=== PATIENT | male | born 1990 | race Caucasian/White ===

== ENCOUNTER 2019-08-16 21:38 | Emergency (ER) | payer SELFPAY ==
--- NOTE | ~2019-08-16 | XR_ITS ---
EXAMINATION: XR shoulder RT min 2V DATE: 08/16/2019 22:25 INDICATION: Right shoulder dislocation. TECHNIQUE: 2 views of right shoulder were obtained. COMPARISON: None. FINDINGS: There is anterior dislocation of humeral head with respect to glenoid. No fracture. Acromio clavicular joint is normal. IMPRESSION: 1. Anterior right shoulder dislocation. Reviewed, dictated and finalized at location A.
--- NOTE | ~2019-08-16 | XR_ITS ---
EXAMINATION: XR shoulder RT min 2V DATE: 08/16/2019 22:49 INDICATION: Anterior right shoulder dislocation status post reduction. TECHNIQUE: 2 views of right shoulder were obtained. COMPARISON: Right shoulder radiographs at 10:16 PM FINDINGS: Bone alignment is normal. No fracture. Joint spaces are normal. IMPRESSION: 1. Normal alignment at right glenohumeral joint. Reviewed, dictated and finalized at location A.
--- NOTE | ~2019-08-16 | XR_ITS ---
EXAMINATION: XR scapula RT DATE: 08/16/2019 22:31 INDICATION: Right shoulder dislocation. TECHNIQUE: 3 views of right scapula were obtained. COMPARISON: None. FINDINGS: There is anterior dislocation of humeral head with respect to glenoid. No fracture. Acromio clavicular joint is normal. IMPRESSION: 1. Anterior right shoulder dislocation. Reviewed, dictated and finalized at location A.
[2019-08-16 21:40] VITALS: BP 156/75; PULSE 78; RESP 20; TEMP 37; O2SAT 98
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
[2019-08-16] MEDS: ONDANSETRON INJ 4 MG/2 ML VIAL IV PUSH (22:01)
[2019-08-16 22:05] VITALS: BP 124/74; PULSE 70; RESP 16; O2SAT 100
--- NOTE | 2019-08-16 22:44 | PC.NURSE ---
Report to Jeniffer
[2019-08-16 23:00] VITALS: BP 135/80; PULSE 67; RESP 18; O2SAT 100
--- NOTE | 2019-08-16 23:00 | PC.NURSE ---
oriented to new day care worker, immobilizer placed
[2019-08-16 23:30] VITALS: BP 127/80; PULSE 70; RESP 18; TEMP 36.6; O2SAT 100
== END 2019-08-16 23:31 | disposition home or self-care (01) ==
PROVIDERS: Emergency Provider Emergency Medicine
DX: S43.004A Unspecified dislocation of right shoulder joint, initial encounter (principal); V29.9XXA Motorcycle rider (driver) (passenger) injured in unspecified traffic accident, initial encounter
CPT/HCPCS: 23650; 73010; 73030; 96374; 96375; 99283; 99285; A9270; J2405; J3010; L3670

== ENCOUNTER 2019-09-08 10:08 | Emergency (ER) | payer SELFPAY ==
[2019-09-08] VITALS (7 sets, daily range): BP systolic 113–143; BP diastolic 65–79; PULSE 52–78; RESP 14–16; TEMP 36.6; O2SAT 97–100
--- NOTE | ~2019-09-08 | XR_ITS ---
EXAMINATION: XR shoulder RT min 2V DATE: 09/08/2019 10:49 INDICATION: Right shoulder dislocation TECHNIQUE: AP, AP oblique and transscapular Y views of the right shoulder were obtained. COMPARISON: 08/16/2019 FINDINGS: Anterior dislocation of the right glenohumeral joint. Normal alignment and joint space at the right a cromioclavicular joint. No fractures identified. Visualized portions of the right lung are clear. IMPRESSION: Anterior right glenohumeral dislocation. Reviewed, dictated and finalized at location A.
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
[2019-09-08] MEDS: MIDAZOLAM HCL 2 MG/2 ML VIAL IV PUSH (11:25)
--- NOTE | 2019-09-08 13:56 | PC.NURSE ---
SEE PAPER CHART FOR MODERATE SEDATION DOCUMENTATION.
== END 2019-09-08 13:57 | disposition home or self-care (01) ==
PROVIDERS: Emergency Provider Family Medicine
DX: S43.014A Anterior dislocation of right humerus, initial encounter (principal)
CPT/HCPCS: 23650; 73030; 99283; 99285; J2250; J3010

== ENCOUNTER 2021-01-11 21:58 | Emergency (ER) | payer SELFPAY ==
--- NOTE | ~2021-01-11 | XR_ITS ---
EXAMINATION: XR shoulder RT min 2V EXAM DATE: 01/11/2021 22:40 INDICATION: dislocation. best available images due to patient condition. TECHNIQUE: Frontal, axillary projections right shoulder. Comparison is made to prior examination fro 09/08/2019. FINDINGS: There is right humeral anterior inferior shoulder dislocation. There may be a chronic Hill -Sachs deformity. No acute fracture suspected. Arm is extended on these projections. IMPRESSION: Right humeral anterior inferior shoulder dislocation, possible chronic Hill-Sachs deform ity. Reviewed, dictated and finalized at location A. [employer] IMPRESSION: Right humeral anterior inferior shoulder dislocation, possible chr onic Hill-Sachs deformity.
--- NOTE | ~2021-01-11 | XR_ITS ---
EXAMINATION: XR shoulder RT min 2V EXAM DATE: 01/11/2021 23:22 INDICATION: Postreduction. TECHNIQUE: Frontal, glenoid, Y projections right shoulder. There is no prior study for comparison. FINDINGS: The right humeral head has been reduced, is in expected position. No acute fractures ident ified. Humerus is no longer extended. IMPRESSION: Status post right humeral reduction. Reviewed, dictated and finalized at location G. R QUALITY TECHNICIAN
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
[2021-01-11 22:08] VITALS: BP 132/65; PULSE 82; RESP 18; TEMP 37.2; O2SAT 96
[2021-01-11] MEDS: KETOROLAC 30 MG/ML VIAL (*BKC) IV PUSH (23:05)
[2021-01-11] MEDS: MIDAZOLAM HCL (*CRX) 2 MG/2 ML VIAL IV PUSH (23:05)
--- NOTE | 2021-01-11 23:55 | PC.NURSE ---
pt return to normal baseline pre sedation, mother at bedside to drive pt home. tolerated procedure well. no nausea, no vomiting . SEE ER SEDATION RECORD HARD COPY
[2021-01-12 00:03] VITALS: BP 116/65; PULSE 66; RESP 20; TEMP 36.6; O2SAT 98
== END 2021-01-12 00:10 | disposition home or self-care (01) ==
PROVIDERS: Emergency Provider Emergency Medicine
DX: S43.084A Other dislocation of right shoulder joint, initial encounter (principal)
CPT/HCPCS: 23650; 73030; 96374; 96375; 99283; 99285; J1885; J2250; L3670

== ENCOUNTER 2021-10-02 07:54 | Emergency (ER) | payer SELFPAY ==
--- NOTE | ~2021-10-02 | XR_ITS ---
XR shoulder RT min 2V DATE: 10/02/2021 08:42 INDICATION: Post reduction of dislocation TECHNIQUE: AP and Neer views COMPARISON: None FINDINGS: Alignment is intact at the acromioclavicular and glenohumeral joints. Mild superior subluxa tion at the glenohumeral joint may indicate rotator cuff pathology. Probable Hill-Sachs deformity of the humerus. No acute fracture is evident. IMPRESSION: No acute fracture or dislocation is detected Reviewed, dictated and finalized at location A.
[2021-10-02 08:00] VITALS: BP 116/68; PULSE 79; RESP 20; TEMP 36.8; O2SAT 97
--- NOTE | 2021-10-02 08:13 | ED.UPPEXIN ---
HPI - Extremity Injury (Upper) General Chief Complaint: Extremity Injury, Upper Stated Complaint: dislocated shoulder right side Time Seen by Provider: 10/02/21 08:10 Source: patient and RN notes reviewed Mode of arrival: ambulatory Limitations: no limitations History of Present Illness complaint: injury to: right and shoulder Onset (ago): minute(s) (30) Other injuries: none Handedness: right Place: home Severity: severe Relieving factors: immobilization Exacerbating factors: movement of extremity Context: other (Reached under the bed for his phone) Associated symptoms: denies other symptoms Related Data Home Medications Medication Instructions Recorded Confirmed No Home Medications 10/02/21 10/02/21 Allergies Allergy/AdvReac Type Severity Reaction Status Date / Time ibuprofen Allergy Unknown Verified 08/16/19 22:03 Review of Systems Review of Systems: All systems reviewed & are unremarkable except as noted in HPI and below PMFSH Past Medical History Medical History Recurrent dislocation, right shoulder Social History Social History Smoking status: Former smoker Alcohol intake: current Substance use: current Substance use type: marijuana Exam Const: General: healthy appearing, alert and ill appearing acutely Nutritional Appearance: well nourished and thin Orientation/consciousness: patient oriented x3 Limitations: no limitations HENMT: Head: normal to inspection Ears: external ears normal Eyes: Conjunctivae: conjunctivae normal Pupils: Equal, round and reactive pupils present EOM: EOMs intact bilaterally Neck: Neck: normal visual inspection Resp: Effort & Inspection: normal respiratory effort Auscultation: clear to auscultation bilaterally Cardio: Rate: regular rate Rhythm: regular rhythm GI: GI Palp: Yes Soft to palpation and No Tenderness to palpation present (GI) Auscultation: normal bowel sounds Back/Spine/Pelvis: Cervical Spine: cervical ROM normal Thoracic/Lumbar Spine: thoraco-lumbar ROM normal Skin: General skin exam: normal color Rashes: no rashes Neuro: General: patient oriented x3, moves all extremities, no focal motor deficits and CN's II-XI intact bilaterally Speech: normal speech Gait exam (Neuro): Normal gait present Extrem: General: normal exam except as noted Right upper extremity: shoulder/upper arm abnormal to inspection obvious dislocation, tenderness of the proximal humerus and abnormal ROM held in an abnormal fashion in ADduction, in flexion and in internal rotation Psych: Mental Status: mental status grossly normal Affect: normal affect Attitude: cooperative Course Vital Signs Vital signs: Vital Signs Temperature 36.8 C 10/02/21 08:00 Pulse Rate 79 10/02/21 08:00 Respiratory Rate 20 10/02/21 08:00 Blood Pressure 116/68 10/02/21 08:00 Pulse Oximetry 97 10/02/21 08:00 Oxygen Delivery Room Air 10/02/21 08:00 Temperature 36.6 C 10/02/21 09:26 Pulse Rate 74 10/02/21 09:26 Respiratory Rate 18 10/02/21 09:26 Blood Pressure 116/84 10/02/21 09:26 Pulse Oximetry 97 10/02/21 09:26 Oxygen Delivery Room Air 10/02/21 09:26 Procedures Orthopedic Joint Reduction Joint #1: Orthopedic Joint Reduction Date: 10/02/21 Time Out Performed: Yes Side: right Joint Reduction Location: shoulder Analgesia: procedural sedation Pre-Procedure Neuro Vascular Exam: normal Technique used: direct manipulation Post-reduction neuro exam: intact Post-reduction vascular: intact Post Reduction X-Ray Obtained: Yes Post Reduction X-Ray Results: reduced Splint Applied: Yes Patient Tolerated Procedure: well and no complications Discharge Plan Discharge Clinical Impression: Dislocation of shoulder region Qualifiers: Encounter type: initial en
[2021-10-02] MEDS: HYDROmorphone HCL INJ (*CRX) 2 MG/ML VIAL 1 MG IV PUSH (08:21)
[2021-10-02] MEDS: ETOMIDATE 20 MG/10 ML AMPUL 10 MG IV PUSH (08:25)
--- NOTE | 2021-10-02 08:58 | PC.NURSE ---
SEE CONSCIOUS SEDATION FLOWSHEETS (HARD COPY). CONSENT VERBALLY AGREED PER PT. PT UNABLE TO SIGN CONSENT FORM.
--- NOTE | 2021-10-02 09:18 | PC.NURSE ---
PT ABLE TO RESPOND APPROPRIATELY, NO DIFFICULTIES WITH AMBULATION IN THE [address]. ABLE TO SIT , STAND. DENIES DIZZINESS, NO NAUSEA, NO VOMITING. ALL DISCHARGE PAPERS REVIEWED WITH PT AND CALL PLACED TO MARILYNN FOR GYNECOLOGY TEACHER OF PT. WILL DISCUSS DISCHARGE ALSO WITH MARILYNN. SEDATION DISCHARGE PLAN REVIEWED WITH PATIENT FROM CONSCIOUS SEDATION PACKET AND SENT HOME WITH PT.
[2021-10-02 09:26] VITALS: BP 116/84; PULSE 74; RESP 18; TEMP 36.6; O2SAT 97
== END 2021-10-02 09:40 | disposition home or self-care (01) ==
PROVIDERS: Emergency Provider Emergency Medicine
DX: S43.004A Unspecified dislocation of right shoulder joint, initial encounter (principal)
CPT/HCPCS: 23650; 73030; 96374; 96375; 99285; A4565; J1170

== ENCOUNTER 2022-08-22 06:45 | Emergency (ER) | payer SELFPAY ==
--- NOTE | ~2022-08-22 | XR_ITS ---
Right Shoulder Technique: AP and scapular Y views were obtained. Clinical History: Post reduction COMPARISON: 08/22/2022 at 7:08 AM Findings: No fracture or dislocation is seen. Osseous alignment is anatomic. The glenohumeral and acr omioclavicular joint spaces are preserved. Soft tissues are unremarkable. Impression: Successful reduction of previously noted humeral head dislocation. No fracture or dislocation seen currently. Reviewed, dictated and finalized at location . Impression: Successful reduction of previously noted humeral head dislocation. No fracture or dislocation seen currently.
--- NOTE | ~2022-08-22 | XR_ITS ---
Right Shoulder Technique: AP and scapular Y views were obtained. Clinical History: Dislocation Findings: Anteroinferior dislocation of the humeral head is present. No fracture identified. AC joint is intact Soft tissues are unremarkable. Impression: Anteroinferior dislocation of the right humeral head. No fracture identified. Reviewed, dictated and finalized at location . Impression: Anteroinferior dislocation of the right humeral head. No fracture identified.
[2022-08-22 06:51] VITALS: BP 140/84; PULSE 66; RESP 16; TEMP 37.2; O2SAT 99
--- NOTE | 2022-08-22 07:01 | ED.UPPEXIN ---
HPI - Extremity Injury (Upper) General Chief Complaint: Extremity Injury, Upper Stated Complaint: R Shoulder Injury Time Seen by Provider: 08/22/22 07:00 Source: patient Mode of arrival: ambulatory Limitations: no limitations History of Present Illness HPI narrative: 31-year-old male with a history of recurrent anterior shoulder dislocation presents to the ER with -- acute onset right shoulder pain when he woke up this morning with decreased range of motion. complaint: injury to: right Onset (ago): hour(s) ( 1 hour ago) Other injuries: none Handedness: right Place: home Relieving factors: immobilization Exacerbating factors: movement of extremity Context: other ( spontaneous dislocation) Associated symptoms: denies other symptoms Related Data Allergies Allergy/AdvReac Type Severity Reaction Status Date / Time No Known Allergies Allergy Verified 08/22/22 07:20 Review of Systems Review of Systems: All systems reviewed & are unremarkable except as noted in HPI and below Constitutional: Constitutional: Reports as per HPI and Reports no additional constitutional complaints Eyes: Eyes: Reports as per HPI and Reports no additional eye complaints ENT: Reports system reviewed and no additional complaints, except as documented and Reports as per HPI Cardiovascular: Cardiovascular: Reports as per HPI and Reports no additional cardiovascular complaints Respiratory: Respiratory: Reports as per HPI and Reports no additional respiratory complaints Gastrointestinal: Gastrointestinal: Reports as per HPI and Reports no additional gastrointestinal complaints Genitourinary: Genitourinary: Reports no additional male genitourinary complaints and Reports as per HPI Musculoskeletal: Musculoskeletal: Reports no additional musculoskeletal complaints and Reports as per HPI Comments: right shoulder pain with decreased range of motion Integumentary/Breasts: Skin/Breast: Reports system reviewed and no additional complaints, except as docu Neurologic: Reports system reviewed and no additional complaints, except as documented and Reports as per HPI Psychiatric: Psychiatric: Reports no additional psychiatric complaints and Reports as per HPI Endocrine: Endocrine: Reports no additional endocrine complaints and Reports as per HPI Hematologic/Lymphatic: Hematologic/Lymphatic: Reports no additional hematologic/lymphatic complaints and Reports as per HPI Allergic/Immunologic: Allergic/Immunologic: Reports no additional allergic/immunologic complaints and Reports as per HPI [facility] Past Medical History Medical History (Updated 08/22/22 @ 08:04 by Fidel Coleman MD) Recurrent dislocation, right shoulder Recurrent shoulder dislocation Social History Social History Smoking status: Former smoker Alcohol intake: current Substance use: current Substance use type: marijuana Living arrangements: with family Exam Const: General: healthy appearing Nutritional Appearance: thin Orientation/consciousness: patient oriented x3 HENMT: Head: normal to inspection Ears: external ears normal Face/Nose/Sinus: Normal external nose present Face and sinus: normal facial exam Mouth: Yes Normal oral and palatal mucosa present Throat: posterior oropharynx normal Eyes: Conjunctivae: conjunctivae normal Pupils: Equal, round and reactive pupils present EOM: EOMs intact bilaterally Direct Ophthalmoscopy: no photophobia Neck: Neck: normal visual inspection, no lymphadenopathy and no meningeal signs Chest: Chest palpation & inspection: normal inspection of the chest Resp: Effort & Inspection: normal respiratory effort Auscultation: clear to auscultation bilaterally Cardio: Rate: regular rate Rhythm: regular rhythm GI: GI Palp: Yes Soft to palpation Auscultation: normal bowel sounds Other: no tenderness/ rigidity /rebound : General: Yes no CVA tenderness Back/Spin
--- NOTE | 2022-08-22 07:24 | PC.NURSE ---
verbal consent for closed reduction of right shoulder signed.
[2022-08-22] MEDS: fentaNYL CITRATE INJ (*CRX) 100 MCG/2 ML VIAL 50 MCG IV PUSH ×2 (07:32→07:46)
--- NOTE | 2022-08-22 07:40 | PC.NURSE ---
patient's right shoulder was able to be reduced. shoulder immobilizer placed. patient states pain has resolved.
--- NOTE | 2022-08-22 07:50 | PC.NURSE ---
patient's right shoulder was able to be reduced. shoulder immobilizer placed. patient states pain has resolved.
[2022-08-22 08:50] VITALS: BP 113/67; PULSE 59; RESP 18; TEMP 36.4; O2SAT 100
== END 2022-08-22 08:50 | disposition home or self-care (01) ==
PROVIDERS: Emergency Provider Internal Medicine Critical Care Medicine
DX: M24.411 Recurrent dislocation, right shoulder (principal); Z87.891 Personal history of nicotine dependence
CPT/HCPCS: 23650; 73030; 96374; 99285; J3010; L3670